=== PATIENT | female | born 1990 | race Caucasian/White ===

== ENCOUNTER 2019-11-30 05:05 | Inpatient (IN) | payer BC, OTHER, SELFPAY ==
[2019-11-30] VITALS (201 sets, daily range): BP systolic 70–127; BP diastolic 37–100; PULSE 34–149; TEMP 36–36.4; O2SAT 76–100; BMI 32.5
--- NOTE | 2019-11-30 05:42 | LDADM ---
This patient, Priscila Mo, was admitted to Labor/Delivery/Recovery 107 on 11/30/19 at 05:05. Plans for labor, pain management and were discussed with patient. Patient/family oriented to hospital policies and general routines including ID bracelet, bed and alarms, visiting hours, pain management, procedures, bathroom and other care routines, personal items, smoking policy, room service/diet and guest tray routines, security routines, and visiting hours. Patient/Family are encouraged to report perceived risks to care and to ask questions if they do not understand what they are told or what they should do. See OBIX for further documentation.
[2019-11-30 05:44] LABS: Basophils Percent Auto 0.2 % (0.2-1.2); Eosinophils Absolute Auto 0.1 K/mm3 (0-0.3); Eosinophils Percent Auto 0.8 % (0-4.4); Hematocrit 33.7 % (37.0-47.0); Hemoglobin 11.9 g/dL (12.0-15.0); Immature Granulocyte Absolute 0.05 K/mm3 (0.00-0.031); Immature Granulocyte Percent A 0.5 % (0-0.5); Lymphocytes Absolute Auto 2.47 K/mm3 (0.9-3.2); Lymphocytes Percent Auto 24.5 % (18.3-44.2); Mean Corpuscular HGB Conc 35.3 g/dl (32-36); Mean Corpuscular Hemoglobin 33.5 pg (26-34); Mean Corpuscular Volume 94.9 fl (80-100); Mean Platelet Volume 11.4 fl (7.4-10.4); Monocytes Absolute Auto 0.5 K/mm3 (0.1-0.6); Monocytes Percent Auto 5.1 % (2.6-8.5); Neutrophils Percent Auto 68.9 % (45.5-73.1); Platelet Count Result 200 k/mm3 (150-375); Red Blood Count 3.55 M/mm3 (4.2-5.4); White Blood Count 10.1 K/mm3 (4.5-10.0)
[2019-11-30] MEDS: LACTATED RINGERS 1,000 ML 125 ML IV CONT ×4 (06:19→18:47)
[2019-11-30] MEDS: OXYTOCIN 30 UNITS/NS 500 ML 30 UNITS/500 ML BAG IV CONT (06:19)
--- NOTE | 2019-11-30 08:40 | WPDOBADMIT ---
Obstetrics - Admit Note Admission Note: record reviewed. Additions to the history and/or subsequent changes in the physical findings follow. 29 y/o at 39 weeks here desiring induction of labor. GBS neg. essentially uncomplicated. AVSS NST reactive TOCO: irregular contractions ABD soft, nontender, gravid, vertex EXT nontender Cervix 2/50/-2. AROM attempted, but too uncomfortable for patient. Not successful. A: IUP at term desiring induction of labor. P: Oxytocin. Anticipate .
--- NOTE | 2019-11-30 09:06 | P.PNAN_ITS ---
Anes - Eval Pre Procedure Procedure: Labor Epidural Date/Time: 11/30/19 09:06 Surgeon: David Preop Diagnosis: Labor Pain Pre Op Diagnosis: Induction of Labor Patient Data Age: 29 Gender: F Height: 5 ft 4 in Weight: 86 kg Last Vital Signs Temp 36.0 C L 11/30/19 05:50 Pulse 78 11/30/19 08:30 BP 122/53 L 11/30/19 08:30 Allergies Allergy/AdvReac Type Severity Reaction Status Date / Time No Known Allergies Allergy Unverified 06/06/13 17:17 Home Medications Medication Instructions Recorded Confirmed Type PNV cmb#95-ferrous fumarate-FA 1 tablet PO DAILY 11/14/19 11/30/19 History [] Laboratory Tests 11/30/19 11/30/19 11/30/19 05:33 05:33 05:33 WBC 10.1 K/mm3 H K/mm3 (4.5-10.0) RBC 3.55 M/mm3 L M/mm3 (4.2-5.4) Hgb 11.9 g/dL L g/dL (12.0-15.0) Hct 33.7 % L % (37.0-47.0) MCV 94.9 fl fl (80-100) MCH 33.5 pg pg (26-34) MCHC 35.3 g/dl g/dl (32-36) RDW 13.0 % % (11.5-14.5) Plt Count 200 k/mm3 k/mm3 (150-375) MPV 11.4 fl H fl (7.4-10.4) Immature Gran % (Auto) 0.5 % % (0-0.5) Neut % (Auto) 68.9 % % (45.5-73.1) Lymph % (Auto) 24.5 % % (18.3-44.2) [place] % (Auto) 5.1 % % (2.6-8.5) Eos % (Auto) 0.8 % % (0-4.4) Baso % (Auto) 0.2 % % (0.2-1.2) Lymph # (Auto) 2.47 K/mm3 K/mm3 (0.9-3.2) [place] # (Auto) 0.5 K/mm3 K/mm3 (0.1-0.6) Eos # (Auto) 0.1 K/mm3 K/mm3 (0-0.3) Baso # (Auto) 0.0 K/mm3 K/mm3 (0.0-0.1) Abs Immat Gran (auto) 0.05 K/mm3 H K/mm3 (0.00-0.031) Absolute Neuts (auto) 7.0 K/mm3 H K/mm3 (1.3-6.7) Absolute Nucleated RBC 0.0 K/mm3 K/mm3 (0.0-0.012) Nucleated RBC % 0.0 % % (0.0-0.2) RPR Pending Blood Type O Positive Antibody Screen Negative : gestational age (GAB 12/07/19) Patient hx anesthesia problems: none Family hx anesthesia problems: none PMFSH Family History Family History Father Diabetes mellitus Mother High cholesterol Sibling Diabetes mellitus Hypertension Social History Social History Smoking status: Never smoker Second hand tobacco smoke exposure: Yes Substance use: never Gender identity (if verbalized by the patient): Female Spiritual care concerns: No Exam Day of Procedure 11/30/19 09:06 Patient weight: normal Heart: regular rate and rhythm Lungs: normal air movement Airway: Mallampati scale class II Neurological: alert and oriented
[2019-11-30 11:13] LABS: Rapid Plasma Reagin Non-Reactive (NonReactive)
--- NOTE | 2019-11-30 12:45 | PM.OBPNLAB ---
Pain Control Date/time seen: 11/30/19 12:00 Feeling more contractions. AVSS NST reactive TOCO contractions every 2-3 min ABD soft, nontender, gravid, vertex EXT nontender Cervix /-2. AROM not performed due to patient's discomfort. Continue oxytocin. She is considering epidural.
--- NOTE | 2019-11-30 15:50 | PM.OBPNLAB ---
Pain Control Date/time seen: 11/30/19 15:50 Comments: Now comfortable with epidural. Pelvic Exam Dilation (cm): 3 Effacement (%): 50 station: -2 Comments: AROM with clear fluid. IUPC placed. Contractions Contraction frequency: 3 Contraction pattern: Regular Status status: Category l Assessment and Plan Comments: Continue oxytocin.
[2019-11-30] MEDS: ONDANSETRON INJ 4 MG/2 ML VIAL IV PUSH (20:19)
[2019-12-01] VITALS (40 sets, daily range): BP systolic 89–124; BP diastolic 44–78; PULSE 25–150; RESP 16; TEMP 36.6–37.3; O2SAT 84–100
[2019-12-01] MEDS: LORATADINE 10 MG TABLET PO (01:40)
[2019-12-01] MEDS: ONDANSETRON INJ 4 MG/2 ML VIAL IV PUSH (01:48)
--- NOTE | 2019-12-01 02:44 | P.PCNOB_ITS ---
OB - Delivery Note Procedure Delivery date: 12/01/19 Procedure: Induction of labor with Induction method: AROM and per pitocin protocol Delivery monitor: external FHT, external uterine and internal uterine Route of delivery: Delivery repair: vicryl (3-0) Specimen: Yes (cord blood) Estimated blood loss (mL): 95 Anesthesia type: Epidural Disposition: PACU Complications: None Narrative: 29 y/o at 39 weeks gestation who presented to the hospital for induction of labor. Oxytocin was administered intravenously. Amniotomy was performed with return of clear fluid. She received an epidural for pain control. Her labor progressed and her cervix dilated completely. She pushed with good effort and delivered the 's head to the perineum, followed by the body. The nose and mouth were bulb suctioned. After a delay, the cord was clamped and cut. The infant was handed off the field. Cord blood was collected. The placenta delivered spontaneously and was grossly normal in ap pearance. The usual 3 vessel cord was noted. A distal vaginal laceration was sustained. A hymenal remnant was excised sharply as well. The vaginal epithelium was reapproximated using 3 0 Vicryl in interrupted figure of eight fashion. Excellent hemostasis resulted as did excellent reapproximation of the normal anatomy. Needle and instrument counts were correct. The patient was taken to recovery room in stable condition. The infant went to the nursery in stable condition. I was present and scrubbed for the entire delivery. [place] [facility] Date of : 12/01/19 Time of : 02:25 Weeks of gestation at delivery: 39 Infant gender: Male Weight (pounds): 6 Weight (ounces): 10 presentation: vertex position: Right Occiput Anterior Placenta delivery description: Spontaneous and Normal Configuration cord vessel description: 3 Vessels score one minute: 9 score five minutes: 9
[2019-12-01] MEDS: OXYTOCIN 30 UNITS/NS 500 ML 30 UNITS/500 ML BAG 125 UNITS IV CONT (02:46)
--- NOTE | 2019-12-01 02:48 | P.DS_ITS ---
DS: Admitting Diagnosis Admitting Diagnosis Admitting Diagnosis: IUP at 39 weeks DS: Discharge Diagnosis Discharge Diagnosis (1) (normal spontaneous vaginal delivery): Code(s): O80 - Encounter for full-term uncomplicated delivery Status: Acute OB - DS: Summary OB Procedures : None OB Procedures Intrapartum: Spontaneous Vag Delivery OB Procedures: : None DS: Data Data Completed and Pending Labs on day of discharge: Labs from last 24 hours 11/30/19 11/30/19 11/30/19 05:33 05:33 05:33 WBC 10.1 H RBC 3.55 L Hgb 11.9 L Hct 33.7 L MCV 94.9 MCH 33.5 MCHC 35.3 RDW 13.0 Plt Count 200 MPV 11.4 H Immature Gran % (Auto) 0.5 Neut % (Auto) 68.9 Lymph % (Auto) 24.5 [place] % (Auto) 5.1 Eos % (Auto) 0.8 Baso % (Auto) 0.2 Lymph # (Auto) 2.47 [place] # (Auto) 0.5 Eos # (Auto) 0.1 Baso # (Auto) 0.0 Abs Immat Gran (auto) 0.05 H Absolute Neuts (auto) 7.0 H Absolute Nucleated RBC 0.0 Nucleated RBC % 0.0 RPR Non-reactive Blood Type O Positive Antibody Screen Negative Discharge Plan Discharge Attending physician on discharge: Paulino Cadena Discharging Clinician: Paulino Cadena Patient Disposition: Home, Self-Care Activity: pelvic rest Diet: regular Discharge Instructions: Call or return if temperature above 100.4? F, increased abdominal pain, increased vaginal bleeding or any new problems. Stand Alone Forms: General Discharge Information Follow-up/Referrals: Paulino Cadena MD [Primary Care Provider] - (6 weeks) Discharge Medications: New ibuprofen 600 mg tablet 600 mg PO Q6H PRN (Reason: cramps) Qty: 30 RF: 0 No Action PNV cmb#95-ferrous fumarate-FA [] 28 mg iron- 800 mcg Tablet 1 tablet PO DAILY RF: 0 Date of admission: 11/30/19 05:05 Primary Care Provider: Paulino Cadena Admitting Provider: Paulino Cadena Attending physician on admission: Paulino Cadena
--- NOTE | 2019-12-01 04:49 | OBPPTRN ---
Patient transferred to post room #285 via wheelchair. Support person present. Oriented to unit, room, information board, rooming in, admission packet and security measures. Patient verbalizes understanding. with patient.
[2019-12-01] MEDS: IBUPROFEN 600 MG TABLET PO ×3 (06:18→19:27)
[2019-12-01] MEDS: DOCUSATE SODIUM 100 MG CAPSULE PO (16:45)
--- NOTE | 2019-12-01 20:21 | PC.NURSE ---
12/01/2019 at 2000 Patient viewed the discharge video Mother & Baby Care, The First Two Weeks . Patient was given the opportunity and encouraged to ask questions. Patient verbalized understanding of information shared and has been given the mother/baby guide for home reference.
[2019-12-02] MEDS: IBUPROFEN 600 MG TABLET PO ×2 (03:06→09:43)
[2019-12-02 05:05] LABS: Hematocrit 30.3 % (37.0-47.0); Hemoglobin 10.4 g/dL (12.0-15.0)
--- NOTE | 2019-12-02 06:23 | PM.OBPNVD ---
OB - PN: Subj Subjective Date/time seen: 12/02/19 06:23 Narrative: Pain OK. Would like to go home. OB - PN: Obj Data Labs CBC & Chem 7: 12/02/19 04:56 Labs: Laboratory Results - last 24 hr 12/02/19 04:56 Hgb 10.4 L Hct 30.3 L OB - PN A/P Plan Comments: A: PPD#2, doing well. P: Home to f/u 6 weeks. Exam Psych: Other: AVSS ABD soft, nontender, fundus firm EXT nontender
[2019-12-02 06:45] VITALS: BP 109/67; PULSE 68; RESP 14; TEMP 36.6
[2019-12-02] MEDS: DOCUSATE SODIUM 100 MG CAPSULE PO (09:43)
[2019-12-02] MEDS: MULTIVIT/MIN/PREN/FOL AC/IRON TABLET 1 TAB PO (09:43)
--- NOTE | 2019-12-02 10:22 | WPDANLDPN2 ---
Anes-Prog Note L&D Date/Time: 12/02/19 10:22 Comfortable throughout: labor Neuraxial method: epidural Epidural/Spinal procedure site: clean & non-tender Neuro status: Neuro function grossly intact. Cardiovascular status: normal Respiratory status: normal Airway patency: baseline Mental status: baseline Post-Op hydration status: normal Vital Signs: Last Vital Signs Temp 36.6 C 12/02/19 06:45 Pulse 68 12/02/19 06:45 Resp 14 12/02/19 06:45 BP 109/67 12/02/19 06:45 Pulse Ox 99 12/01/19 04:49 Pain score (VAS): 0/0 Post-procedural complaints: none Patient feedback: Patient satisfied with anesthetic care.
--- NOTE | 2019-12-02 14:15 | PC.NURSE ---
1230 pt reports she read the discharge paper for herself and her baby; questions answered. discharge papers signed in understanding.
[2019-12-04 08:50] VITALS: BP 121/75; PULSE 80; RESP 20; TEMP 37; O2SAT 100
== END 2019-12-02 13:06 | disposition home or self-care (01) | DRG 806 ==
LOC: ANHLDR 12-01 02:51 → ANHOB2 12-01 05:17
PROVIDERS: Admitting Provider Obstetrics & Gynecology; PCP Obstetrics & Gynecology; Visit Provider Obstetrics & Gynecology
DX: O99.344 Other mental disorders complicating childbirth (principal); O71.4 Obstetric high vaginal laceration alone; Z37.0 Single live birth; Z3A.39 39 weeks gestation of pregnancy; F41.9 Anxiety disorder, unspecified
CPT/HCPCS: 36415; 85014; 85018; 85025; 86592; 86850; 86900; 86901; A9270; J2405; J2590; J2795; J7120

== ENCOUNTER 2022-12-25 10:56 | Emergency (ER) | payer BC, SELFPAY ==
--- NOTE | ~2022-12-25 | XR_ITS ---
EXAMINATION: XR chest 2V 12/25/2022 12:12 INDICATION: Cough and congestion for 3 weeks PROCEDURE: 2 view chest COMPARISON: No prior studies for comparison. FINDINGS: The lungs are clear. The cardiomediastinal silhouette is within normal limits. There are no pleural effusions. There is no pneumothorax suspected. IMPRESSION: 1: NO ACUTE CARDIOPULMONARY DISEASE. Reviewed, dictated and finalized at location A.
[2022-12-25 11:14] VITALS: BP 118/71; PULSE 97; RESP 20; TEMP 36.1; O2SAT 96
--- NOTE | 2022-12-25 11:36 | ED.URI ---
HPI - URI/Sore Throat General Chief Complaint: Upper Respiratory Infection Stated Complaint: shane,cough,ears clogged Time Seen by Provider: 12/25/22 11:37 Source: patient, RN notes reviewed and old records reviewed Mode of arrival: ambulatory Limitations: no limitations History of Present Illness HPI Narrative: 32 year presents to [facility] with complaints of 2-3 weeks of sinus congestion with drainage, cough and congestion, headache and ear pressure.Patient reports that she had some Amoxicillin at home from a dental problem and she has taken 2 days of script and has been taking Delsym but has not had any relief in her symptoms. Patient reports no known fevers, chills or body aches, denies any shortness of breath. MD elicited complaint: cough, rhinorrhea, nasal congestion and other (ear pressure) Onset (ago): week(s) (2-3 weeks) Severity: moderate Able to tolerate fluids by mouth: Yes Treatments prior to arrival: other (Delsym cough syrup, 2 days of amoxicillin) Related Data Home Medications Medication Instructions Recorded Confirmed amoxicillin 500 mg capsule mg 12/25/22 Allergies Allergy/AdvReac Type Severity Reaction Status Date / Time No Known Allergies Allergy Unverified 06/06/13 17:17 Review of Systems Review of Systems: CONSTITUTIONAL: Denies malaise, chills, sweats, or fever. EYES: Denies visual changes, redness, or discharge. ENT: Reports rhinorrhea, congestion, sinus pain, otalgia no sore throat. CARDIOVASCULAR: Denies chest pain, palpitations, or edema. RESPIRATORY: Reports cough.? Denies dyspnea. GASTROINTESTINAL: Denies abdominal pain, nausea, vomiting, diarrhea SKIN: Denies rash or itching. MUSCULOSKELETAL: Denies myalgia. NEUROLOGIC: Reports headache. All systems reviewed & are unremarkable except as noted in HPI and below PMFSH Past Medical History Medical History Anxiety Surgical History Surgical History (Updated 12/27/22 @ 07:31 by Fely Kern NP) H/O thumb surgery History of left oophorectomy Family History Family History Father Diabetes mellitus Mother High cholesterol Sibling Diabetes mellitus Hypertension Social History Social History Smoking status: Never smoker Second hand tobacco smoke exposure: Yes Substance use: never Gender identity (if verbalized by the patient): Female Spiritual care concerns: No Comments At time of signature, agree with nursing past medical, surgical, social and family history. There is no relevant family history pertinent to the presenting complaint Exam Narrative: GENERAL: Well-appearing, well-nourished, and in no acute distress. HEAD: Normocephalic EYES: PERRLA, conjunctivae clear ENT: Nares clear, turbinates edematous and erythematous, clear discharge.sinus pressure and headache Mucous membranes moist. TM pearly serna with dull light reflex bilaterally; no tragal tenderness. Oropharynx erythematous without lesions. Tonsils not enlarged and without exudate, no drooling, no hoarseness, no trismus, uvula midline.nasal discharge NECK: Supple. No lymphadenopathy CHEST: scattered wheezing, breath sounds equal. wheezing, no rhonchi, rales, or stridor. No respiratory distress, speaks in full sentences, frequent cough,SAO2 96% on room air HEART: Regular rate and rhythm. No murmur heard. SKIN: Warm, dry, no rash. NEURO: Alert and oriented x3. PSYCH: Normal mood and affect Course Course Emergency Course: Patient is aware of diagnosis, understands and agrees to treatment plan.? Anticipatory guidance given.? Patient agrees to follow-up as directed and is aware of reasons to seek care at the emergency department. Portions of this record may have been created with voice recognition software Level of Care: Express Care Visit
== END 2022-12-25 12:46 | disposition home or self-care (01) ==
PROVIDERS: Emergency Provider Registered Nurse
DX: J40 Bronchitis, not specified as acute or chronic (principal); J32.9 Chronic sinusitis, unspecified
CPT/HCPCS: 71046; 99213; G0463